=== PATIENT | male | born 1955 | race Caucasian/White ===

== ENCOUNTER → 2018-06-03 | Outpatient (CLI) | payer OTHER ==
[~2018-06-03] MED LIST: AMLODIPINE BESYL5 MG PO; ASPIRIN EC81 M1 PO; ATORVASTATIN CA20 MG PO; GLUCOPHAGE XR500 MG PO; LEVOTHYROXINE0.05 MG PO; LISINOPRIL40 MG PO
== END ==
LOC: CAT 09:55
DX: Z13.6 Encounter for screening for cardiovascular disorders (principal); E78.00 Pure hypercholesterolemia, unspecified